=== PATIENT | male | born 1930 | race Caucasian/White ===

== ENCOUNTER 2017-04-17 20:18 | Inpatient (IN) ==
[2017-04-17] MEDS ORDERED: SODIUM CHLORIDE 0.9% 2,000 ML IV STA (20:40)
[2017-04-17 21:54] LABS: Basophils % 0.1 % (0.0-0.8); Eosinophils % 0.1 % (0.00-10.9); Hematocrit 49.6 VOL% (42.0-52.0); Hemoglobin 16.7 GM/DL (14.0-18.0); Immature Granulocytes % 0.5 %; Immature Granulocytes Absolute 0.09 #; Lymphocytes # 1.3 10*3/uL (1.4-4.0); Lymphocytes % 7.3 % (21.2-54.2); Mean Corpuscular HGB Conc 33.7 GM/DL (32-36); Mean Corpuscular Hemoglobin 31 PG (27-34); Mean Corpuscular Volume 93.2 FL (87-102); Mean Platelet Volume 9.6 FL (9.6-12.0); Monocytes # 1.6 10*3/uL (0.11-0.8); Neutrophils # 14.8 10*3/uL (1.4-7.4); Platelet Count 237 T/CUMM (130-400); Red Blood Count 5.32 MC/CUMM (3.8-5.5); Red Cell Distribution Width 14.3 % (9.3-17.3); White Blood Count 17.9 T/CUMM (4-12)
[2017-04-17 22:05] LABS: Apearance,Urine Slightly Hazy (Clear); Bilirubin,Urine Negative (Negative); Blood, Urine Large mg/dL (Negative); Glucose,Urine (UA) Negative (Negative); Hyaline Casts,Urine 15 /LPF (0-3); Ketones,Urine 20 mg/dL (Negative); Mucus,Urine Moderate /LPF (Occasional); Nitrite,Urine Negative (Negative); Protein,Urine 100 MG/DL; RBC,Urine 15 /HPF (0-4); Squamous Epithelial Cell,Urine Occasional /HPF (0-10); Urine Color Yellow (Yellow); Urine Specific Gravity 1.013 (1.001-1.035); Urine Urobilinogen < 2.0 EU/DL (0.2-1.0); WBC,Urine 7 /HPF (0-6)
[2017-04-17 22:10] LABS: Calcium 9.7 MG/DL (8.5-10.1); Magnesium 2.4 MG/DL (1.8-2.4); Osmolality,Calculated 312.1 MOS/KG (273-304); Potassium 4.2 MMOL/L (3.5-5.1)
[2017-04-17 22:15] LABS: Lactic Acid 2.7 MMOL/L (0.4-2.0)
[2017-04-17] MEDS ORDERED: cefTRIAXone 1,000 MG in SODIUM CHLORIDE 0.9% 100 ML IV STA (22:23)
--- NOTE | 2017-04-17 22:36 | Emergency Department Note ---
ICliff Emily, am scribing for, and in the presence of, He Cr MD 20:59. Tayo Forman Hans, MD, personally performed the services described in this documentation, ascribed by Marylin Coronado in my presence, and it is both accurate and complete . Arrival - Arrival Chief Complaint: Fall ED Nursing Triage Note: Pt arrives via ems from home after being found in floor by neighbors. PT states that he lost his balance and fell into the floor on Monday was not able to get up. Complains of pain to back of head where he states he bumped his head on wall Monday. Denies any loc with fall and no other complaints of pain at time of triage. Mode of Arrival: Stretcher Limitations: No Limitations Source: Patient Time Seen by Provider: 04/17/17 20:31 - History of Present Illness HPI Narrative: Pt is a 86 y/o male who came to ED by EMS with c/o mechanical fall on Monday and was found by neighbor today. Pt notes pouring Miralax and foot slipped and slid down wall, hitting head of posterior region, but denies LOC. Pt has ecchymosis to hips in ED but denies pain. Pt takes aspirin, blood thinner. Neighbor found pt on floor, laying flat on back due to pt unable to get up own his on. Neighbor reports son that lives in [place], [place], is on his way to ED. She state pt is in nml baseline in ED. She gave him a coke and nabs ( peanut butter crackers) when she found him. PMHx of two heart caths in 2011. Onset (ago): day(s) Consistency: constant Severity: moderate Severity scale (1-10): 6 Allergies/Adverse Reactions: Allergies Allergy/AdvReac Type Severity Reaction Status Date / Time No Known Allergies Allergy Verified 04/17/17 20:29 Review of System - Review of System 12 point system: reviewed and no additional remarkable complaints except as stated - Review of System Constitutional: Absent: chills, fever Head/Ears/Nose/Throat: Present: other (posterior scalp pain) Respiratory: Absent: respiratory distress Cardiovascular: Absent: chest pain Gastrointestinal: Absent: abdominal pain Musculoskeletal: Absent: arm pain, back pain, lower back pain, leg pain, neck pain Skin: Absent: rash Neurological: Absent: headache Medical,Surgical,& Family Hx - Medical History Cardio: History of: Hypertension - Family History Family History: noncontributory - Social History Smoking Status: Never smoker Frequency of Alcohol Use: None Type of Drug Use: None Marital Status: Single Lives With:: Alone Functional capacity: independent ambulation Exam Vital Signs: Vital Signs Temperature 98.4 F 04/17/17 20:18 Pulse Rate 74 04/17/17 20:18 Respiratory Rate 20 04/17/17 20:18 Blood Pressure 123/97 04/17/17 20:18 O2 Sat by Pulse Oximetry 96 04/17/17 20:18 - General General appearance: alert, in no apparent distress - Head Head exam: Present: atraumatic, normocephalic, other (tenderness of posterior scalp, no hematoma found) - Eye Eye exam: Present: PERRL, EOMI - ENT ENT exam: Present: mucous membranes moist. Absent: mucous membranes dry - Neck Neck exam: Present: full ROM - Chest Chest inspection: Present: symmetric chest wall rise - Respiratory Respiratory exam: Present: normal lung sounds bilaterally. Absent: respiratory distress - Cardiovascular Cardiovascular exam: Present: regular rate, normal rhythm, normal heart sounds - Abdominal Exam Abdominal exam: Present: soft, normal bowel sounds. Absent: tenderness - Extremities Exam Extremities exam: Present: full ROM. Absent: tenderness, pedal edema - Neurological Exam Neurological exam: Present: alert, oriented X3, CN II-XII intact, other (gross neuro intact; posterior tibial pulses +2) - Psychiatric Psychiatric exam: Present: normal affect, normal mood - Skin Skin exam: Present: warm, dry. Absent: intact (ecchymosis noted to bilateral shoulders, knees, hips and feet) Course Course Narrative: This patient was evaluated in the ER with CT head and cervical spine as well as chest x-ray and pelvis x-ray. No acute pathology was seen. The patient was volume depleted on his lab work and received 2 L of fluid in the ER. I discussed his presentation with the hospitalist service on-call who agreed to see him for admission for hydration. His CPK was still pending at the time of the consultation but there was no compartment syndrome exam and his urine did not look like myoglobinuria or rhabdomyolysis. Results - Labs CBC & BMP: 04/17/17 21:45 04/17/17 21:45 Lab Results: I have reviewed the patients labs Labs: Laboratory Tests 04/17/17 04/17/17 04/17/17 21:45 21:45 21:45 WBC 17.9 H RBC 5.32 Hgb 16.7 Hct 49.6 Plt Count 237 Neut % (Auto) 83.0 H Lymph % (Auto) 7.3 L Neut # (Auto) 14.8 H Lymph # (Auto) 1.3 L Wells # (Auto) 1.6 H Sodium 149 H Potassium 4.2 Chloride 111 H Carbon Dioxide 24 Anion Gap 18.2 H BUN 52 H Creatinine 1.70 H GFR Calculation 39 BUN/Creatinine Ratio 30.00 H Glucose 150 H Calculated Osmolality 312.1 H Lactic Acid 2.7 H Calcium 9.7 Magnesium 2.4 Urine Color Yellow Urine Appearance Slightly hazy Urine pH 5.0 Ur Specific [place] 1.013 Urine Protein 100 Urine Glucose (UA) Negative Urine Ketones 20 Urine Blood Large Urine Nitrate Negative Urine Urobilinogen < 2.0 H Urine RBC 15 Urine WBC 7 Ur Squamous Epith Cells Occasional Hyaline Casts 15 Urine Mucus Moderate Disposition Clinical Impression: Fall Case discussed with: patient, patient's family Disposition: Still a Patient Condition: Stable Time of Disposition: 22:36
[2017-04-17] MEDS ORDERED: DEXTROSE 5% NACL 0.45% 1,000 ML IV SCH (23:30)
[2017-04-17] MEDS ORDERED: cefTRIAXone 1,000 MG VIAL ONE (23:32)
[2017-04-18] MEDS: LACTATED RINGERS 1,000 ML IV SCH ×2 (01:30→06:06)
[2017-04-18 04:41] LABS: Basophils % 0.1 % (0.0-0.8); Hematocrit 42.1 VOL% (42.0-52.0); Hemoglobin 13.9 GM/DL (14.0-18.0); Immature Granulocytes % 0.6 %; Immature Granulocytes Absolute 0.09 #; Lymphocytes % 6.9 % (21.2-54.2); Mean Corpuscular Hemoglobin 31 PG (27-34); Mean Corpuscular Volume 94.4 FL (87-102); Mean Platelet Volume 9.8 FL (9.6-12.0); Monocytes # 1.8 10*3/uL (0.11-0.8); Monocytes % 11.5 % (1.7-12.7); Neutrophils # 12.3 10*3/uL (1.4-7.4); Neutrophils % 80.9 % (38.7-73.9); Platelet Count 196 T/CUMM (130-400); Red Blood Count 4.46 MC/CUMM (3.8-5.5); Red Cell Distribution Width 14.4 % (9.3-17.3); White Blood Count 15.2 T/CUMM (4-12)
[2017-04-18 05:02] LABS: Calcium 8.4 MG/DL (8.5-10.1); Potassium 4.4 MMOL/L (3.5-5.1)
--- NOTE | 2017-04-18 06:07 | CT Report ---
History: Fall with loss of consciousness Date: 04/17/2017 Study: CT head without contrast Comparison exam: July 29, [address] The study was also reviewed by [facility]. Transaxial CT sections were obtained through the brain without contrast. The ventricles are midline in position without evidence of hydrocephalus. There is no mass or area of parenchymal hemorrhage. There is no gross CT evidence of acute cortical stroke. There is mild to moderate diffuse cerebral atrophy. There is a small amount of ill-defined low density in the periventricular white matter without mass effect compatible with changes of small vessel disease. There is no extra-axial hematoma. The sinuses are generally clear. There is no obvious skull fracture. Impression: No acute intracranial process. No adverse interval change from the previous study This CT exam was performed using one or more the following dose reduction techniques: Automated exposure control, adjustment of the MA and/or KV according to patient size, or use of iterative reconstruction technique. PROCEDURE INTERPRETED AT [facility] DEPARTMENT OF RADIOLOGY Final Report Signed by: Dr. Kathe Patel
--- NOTE | 2017-04-18 06:13 | CT Report ---
History: Neck pain after fall Date: 04/17/2017 Study: CT cervical spine without contrast Comparison exam: No previous cervical spine CT available The study was also reviewed by [facility]. Thin spiral CT sections were obtained through the cervical spine without IV contrast. Multiplanar reconstruction images are also evaluated. There is no fracture, subluxation, or prevertebral soft tissue swelling. There is prominent degenerative disc narrowing at C6-C7 with mild disc narrowing at C5-C6. There is moderate anterior spondylosis at these levels. There is mild narrowing of the spinal canal at C2-C3 related to minimal posterior diffuse disc bulging; there is moderate bony neural foraminal narrowing on the left this level related to facet hypertrophy. There is moderate spinal stenosis at C3-C4 related to moderate posterior diffuse disc bulging as well as moderate ligamentum flavum hypertrophy; there is severe left and moderate right neural foraminal narrowing related to uncovertebral and facet hypertrophy. There is mild spinal stenosis at C4-C5 related to mild posterior diffuse disc bulging and mild ligament flavum hypertrophy; there is moderate to severe bilateral neural foraminal narrowing related to uncovertebral and facet hypertrophy. There is mild spinal stenosis at C5-C6 related to mild posterior bulging disc and osteophyte; there is moderate to severe right greater than left neural foraminal narrowing related to uncovertebral hypertrophy. There is moderate spinal stenosis at C6-C7 related to posterior bulging disc and vertebral body osteophyte, lateralized to the left; there is severe neural foraminal narrowing bilaterally related to uncovertebral hypertrophy. This CT exam was performed using one or more the following dose reduction techniques: Automated exposure control, adjustment of the MA and/or KV according to patient size, or use of iterative reconstruction technique. Impression: No acute fracture. Multilevel spinal stenosis related to bulging disc and vertebral body osteophyte as detailed above PROCEDURE INTERPRETED AT [facility] DEPARTMENT OF RADIOLOGY Final Report Signed by: Dr. Kathe Patel
[2017-04-18] MEDS: SODIUM CHLORIDE 0.45% 1,000 ML IV SCH ×4 (06:45→23:40)
--- NOTE | 2017-04-18 07:16 | XRay Report ---
History: Fall with pelvic trauma Date: 04/18/2017 Study: AP pelvis Comparison exam: No previous similar There is no fracture, dislocation, or focal destructive osseous abnormality. There is osteopenia. There is mild osteophyte formation of the hips, though the joint spaces are well-maintained. There is lower lumbar spondylosis. Impression: No fracture. Degenerative changes of the hips and lower lumbar spine. Osteopenia PROCEDURE INTERPRETED AT [facility] DEPARTMENT OF RADIOLOGY Final Report Signed by: Dr. Kathe Patel
--- NOTE | 2017-04-18 07:52 | XRay Report ---
History: Chest trauma related to fall Date: 04/17/2017 Study: Chest x-ray AP portable Comparison exam: March 27, 2012 The cardiac silhouette is not enlarged. There is no mediastinal mass. The pulmonary vasculature is not engorged. There is no gross pleural effusion. The lungs are well-expanded and clear. There is calcified granuloma in the lateral left mid to lower lung. There is mild thoracic spondylosis Impression: No acute cardiopulmonary process. No significant interval change PROCEDURE INTERPRETED AT [facility] DEPARTMENT OF RADIOLOGY Final Report Signed by: Dr. Kathe Patel
--- NOTE | 2017-04-18 08:20 | Internal Med History&Physical ---
Assessment and Plan (1) Fall Status: Acute Assessment and plan: 86-year-old male admitted to intensive care unit * Status post fall. Patient was apparently on the floor for 2 days. His CPK was elevated. Patient did have renal insufficiency consistent with dehydration. He was given 2 L IV fluids in the ER and is getting fluids at 200 cc an hour. Will follow his CPK and will check aldolase on the patient * Dehydration. Continue IV fluids as mentioned above * Elevated white count. No evidence of any infection. * Coronary artery disease. Stable * Hypertension. Will hold lisinopril but will restart metoprolol * Hyperlipidemia. Will hold statin * Will consult PT and OT. * Discussed with patient. No family is present Current Visit: Yes (2) Hypertension Status: Acute Current Visit: Yes (3) Diet-controlled diabetes mellitus Status: Acute Current Visit: Yes (4) Coronary artery disease Status: Acute Current Visit: Yes (5) Hearing impairment Status: Acute Current Visit: Yes (6) Hyperlipidemia Status: Acute Current Visit: Yes History of Present Illness Chief complaint: Fall History of present illness: Mr. Little is a 86 year old male with history of multiple medical problems including hypertension, diet-controlled diabetes, hypercholesterolemia, gastroesophageal reflux disease, glaucoma, hearing impairment who was admitted through the emergency room. Patient was found on the floor by his neighbors. Patient lost his balance and fell into the floor on Monday and was not able to get up. She denied any loss of consciousness. Patient was unable to get up on his own. His son lives in [place] and when they did not hear from him they called the neighbors. He denies any chest pain or shortness of breath. He is aching all over. He denies any fever or chills. He does not remember how he fell. Patient was evaluated in the emergency room with CT scan of her head, cervical spine, chest x-ray and pelvis x-ray. He did not had any acute changes on the CT scans. His chest x-ray was okay. Patient was reportedly back to his baseline in the emergency room. He recognizes me this morning. He denies any specific complaints and states that he is hungry. Patient does not smoke or drink alcohol Home Medications Medication Instructions Recorded Confirmed Type Acetaminophen Tab [Tylenol Tab] 650 mg PO DAILY 04/18/17 04/18/17 History Aspirin [Ecotrin] 81 mg PO DAILY 04/18/17 04/18/17 History Atorvastatin [Lipitor] 10 mg PO DAILY 04/18/17 04/18/17 History Brimonidine/Timolol Oph Soln 1 drop BOTH EYES BID 04/18/17 04/18/17 History [Combigan] Clopidogrel [Plavix] 75 mg PO DAILY 04/18/17 04/18/17 History Finasteride 5 mg PO DAILY 04/18/17 04/18/17 History Gabapentin Cap/Tab [Neurontin 400 mg PO BID 04/18/17 04/18/17 History Cap/Tab] Lisinopril 5 mg PO DAILY 04/18/17 04/18/17 History Metoprolol Tartrate 25 mg PO BID 04/18/17 04/18/17 History Omeprazole 20 mg PO DAILY 04/18/17 04/18/17 History Travoprost 0.004% Oph Soln 1 drop BOTH EYES BEDTIME 04/18/17 04/18/17 History [Travatan Z] Allergies Allergy/AdvReac Type Severity Reaction Status Date / Time No Known Allergies Allergy Verified 04/17/17 20:29 Medical,Surgical,& Family Hx - Medical History Cardio: History of: CAD (Stent placement in 2011), Hypertension HEENT: History of: Ear Problem (wears bilateral hearing aids), 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) Endocrine: History of: Diabetes Mellitus (NIDDM) (diagnosed [place] 20 years ago), Dyslipidemia Renal: History of: Renal Problems (Chronic renal insufficiency) Genitourinary: History of: Prostate Problems (BPH) Gastrointestinal: History of: GERD Musculoskeletal: History of: Musculoskeletal Problems (difficulties walking) No history of: Amputation - Surgical History Cardiac Surgeries: Sugical HX of: Cardiac Catheterization (x2, with stents 2011) Thoracic Surgeries: Patient denies;: Organ Transplant, Lobectomy Neurologic Surgeries: Patient denies: Neurologic Surgery HEENT Surgeries: Surgical HX of: Eye Surgery (bilateral cataracts 2001) Abdominal Surgeries: Patient denies: Abdominal Surgery Reproductive Surgeries: Surgical HX of;: Genitourinary Surgery Orthopedic Surgeries: Patient denies;: Implanted Devices, Orthopedic Surgery, Spinal Surgery, Total Hip Replacement, Total Knee Replacement - Family History Family History: Reports;: Family Cancer, Family Heart Disease - Social History Smoking Status: Never smoker Frequency of Alcohol Use: None Type of Drug Use: None Marital Status: Single Lives With:: Alone Functional capacity: independent ambulation 12 point system: reviewed and no additional remarkable complaints except as stated (As mentioned in HPI) Exam - Constitutional Vitals: Period Temp Pulse Resp BP Sys/Beckford Pulse Ox Last 24 Hr 98.4 F-99.5 F 74-117 14-20 123-175/67-97 90-100 Exam: Examination: GENERAL: NAD. HEENT: PERRLA. EOMI. Mucous membranes are moist. Abrasion on the scalp but no hematoma NECK: Neck is supple. No JVD. No carotid bruit. No thyromegaly. CVS: Regular rate and rhythm. S1 and S2 are normal. RESPIRATORY: Lungs are clear. No rales or rhonchi. ABDOMEN: Soft and nontender. Bowel sounds are present. No hepatosplenomegaly. EXT: No edema. Peripheral pulses are present. RESORT KEEPER: Patient is awake, alert and oriented to time place and person. Cranial nerves II through XII are grossly intact. Motor strength is 3-4 over 5 both upper and lower extremities. Sensory is intact. Deep tendon reflexes are present. SKIN: Warm and dry. Multiple abrasions are present on the skin both feet. Ecchymosis on both shoulders knees hips and feet. MSK: No obvious deformity. Results - Labs CBC & BMP: 04/18/17 03:31 04/18/17 03:31 Lab Results: I have reviewed the past 24 hour labs
[2017-04-18] MEDS: GABAPENTIN 400 MG CAPSULE PO SCH ×2 (11:28→21:20)
[2017-04-18] MEDS: METOPROLOL TARTRATE 25 MG TABLET PO SCH ×2 (11:28→21:20)
[2017-04-18] MEDS: FINASTERIDE 5 MG TABLET PO SCH (11:29)
[2017-04-18] MEDS: CLOPIDOGREL 75 MG TABLET PO SCH (11:29)
[2017-04-18] MEDS: BRIMONIDINE/TIMOLOL OPH SOLN 5 ML BOTTLE BOTH EYES SCH ×2 (11:30→21:20)
[2017-04-18] MEDS: TRAVOPROST 0.004% OPH SOLN 2.5 ML BOTTLE BOTH EYES SCH (21:20)
[2017-04-19 06:16] LABS: Albumin 2.2 G/DL (3.4-5.0); Bilirubin,Total 1.3 MG/DL (0.2-1.0); Calcium 7.8 MG/DL (8.5-10.1); Osmolality,Calculated 292.8 MOS/KG (273-304); Potassium 3.6 MMOL/L (3.5-5.1); Total Protein 4.4 G/DL (6.4-8.3)
--- NOTE | 2017-04-19 06:54 | Physician Query Form ---
CLICK EDIT DOCUMENT TO SELECT QUERY ANSWER --> OK --> SIGN Sharri Anderson RN, CCDS Certified Clinical Dental Service Technician W) [phone] (f) [phone] [email or web address] PROVIDERS: Make your selection(s) from the choices in EACH section by typing an "x" and enter comments in the comment section. Please use your independent medical judgment in providing your response. This request does not imply that any particular answer is desired or expected. CLINICAL INDICATORS: (Providers should not edit this section) The medical record indicates that the patient was admitted for hydration, Sodium of 149 on the that increased to 150 on the and the patient was placed on 1/2 NS on the . Based on the above, could you clarify the appropriate diagnosis, if significant , that supports the above abnormalities and additional evaluation, monitoring, and/or treatment rendered: ( ) Patient was treated or monitored for hypernatremia ( ) Patient was not treated or monitored for hypernatremia ( x) Other, please specify: Patient was extremely dehydrated ( ) Clinically unable to determine COMMENTS: PLEASE ALSO DOCUMENT RESPONSE IN PROGRESS NOTES AND/OR DISCHARGE SUMMARY Use of terms such as suspected, likely, or probable (associated with a specific diagnosis that is being evaluated, monitored, or treated as if it exists) are acceptable and can be restated in the discharge summary if not ruled out. MTDD
--- NOTE | 2017-04-19 06:55 | Physician Query Form ---
CLICK EDIT DOCUMENT TO SELECT QUERY ANSWER --> OK --> SIGN Sharri Anderson RN, CCDS Certified Clinical Artistic Director W) [phone] (f) [phone] [email or web address] PROVIDERS: Make your selection(s) from the choices in EACH section by typing an "x" and enter comments in the comment section. Please use your independent medical judgment in providing your response. This request does not imply that any particular answer is desired or expected. CLINICAL INDICATORS: (Providers should not edit this section) The medical record indicates that the patient was admitted for hydration, creatinine of 1.70# on the that has decreased to 1.00# on the , GFR of 39 on the that has increased to 82 on the and the patient was bolused with 2,000 cc in the ER. Clarify which of the following most accurately represents the patient's renal status: ( ) Acute kidney injury (non-traumatic) ( ) Acute renal failure ( ) Acute renal failure with underlying Chronic Kidney Disease (CKD) - please provide stage below ( ) Acute renal failure with pathological renal lesion ( ) Acute renal failure with necrosis ( ) tubular ( ) medullary ( ) cortical ( ) CKD - please provide stage below ( ) End Stage Renal Disease ( ) Acute interstitial nephritis ( ) Hepatorenal syndrome (x ) Other, please specify: Patient was extremely dehydrated and had acute kidney injury secondary to dehydration ( ) Clinically unable to determine Chronic Kidney Disease Stages Source: National Kidney Disease Foundation ( ) Stage I (eGFR > or = 90) ( x) Stage II (eGFR 60 - 89) ( ) Stage III (eGFR 30 - 59) ( ) Stage IV (eGFR 15 - 29) ( ) Stage V (eGFR < 15 or dialysis) COMMENTS: PLEASE ALSO DOCUMENT RESPONSE IN PROGRESS NOTES AND/OR DISCHARGE SUMMARY Use of terms such as suspected, likely, or probable (associated with a specific diagnosis that is being evaluated, monitored, or treated as if it exists) are acceptable and can be restated in the discharge summary if not ruled out. MTDD
[2017-04-19] MEDS: SODIUM CHLORIDE 0.45% 1,000 ML IV SCH ×2 (07:04→16:21)
[2017-04-19] MEDS: FINASTERIDE 5 MG TABLET PO SCH (08:42)
[2017-04-19] MEDS: GABAPENTIN 400 MG CAPSULE PO SCH ×2 (08:42→21:52)
[2017-04-19] MEDS: METOPROLOL TARTRATE 25 MG TABLET PO SCH ×2 (08:42→21:52)
[2017-04-19] MEDS: CLOPIDOGREL 75 MG TABLET PO SCH (08:42)
[2017-04-19] MEDS: BRIMONIDINE/TIMOLOL OPH SOLN 5 ML BOTTLE BOTH EYES SCH ×2 (08:45→21:53)
--- NOTE | 2017-04-19 09:08 | Internal Med Progress Note ---
Assessment and Plan (1) Fall Status: Acute Assessment and plan: 86-year-old male admitted to intensive care unit * Status post fall. He is much better. He still quite weak. His CPK is coming down. His renal function is normal * Dehydration. Decrease IV fluids. * Elevated white count. No evidence of any infection. * Coronary artery disease. Stable * Hypertension. Blood pressure is stable * Hyperlipidemia. Will hold statin * Will consult PT and OT. * Discussed with patient. Will move him to floor. He will benefit from swing bed placement. Current Visit: Yes (2) Hypertension Status: Acute Current Visit: Yes (3) Diet-controlled diabetes mellitus Status: Acute Current Visit: Yes (4) Coronary artery disease Status: Acute Current Visit: Yes (5) Hearing impairment Status: Acute Current Visit: Yes (6) Hyperlipidemia Status: Acute Current Visit: Yes Internal Medicine - PN: Subj Interval history: Patient is feeling much better today. He is sitting up in the bed eating his breakfast. He still feels quite weak. He denies any chest pain or shortness of breath. He denies any nausea or vomiting. Exam (Progress Note) - Constitutional Vitals: Period Temp Pulse Resp BP Sys/Beckford Pulse Ox Last 24 Hr 98.0 F-99.6 F 66-96 12-24 84-147/38-86 92-100 Exam: Examination: GENERAL: NAD. HEENT: PERRLA. EOMI. NECK: Neck is supple. CVS: Regular rate and rhythm. S1 and S2 are normal. RESPIRATORY: Lungs are clear. No rales or rhonchi. ABDOMEN: Soft and nontender. EXT: No edema. Peripheral pulses are present. EDUCATIONAL TECHNOLOGY COORDINATOR: Patient is awake, alert and oriented to time place and person. Motor strength is 3-4 over 5 both upper and lower extremities. SKIN: Warm and dry. Multiple abrasions are present on the skin both feet. Ecchymosis on both shoulders knees hips and feet. MSK: No obvious deformity. Results - Labs CBC & BMP: 04/18/17 03:31 04/19/17 04:18 Lab Results: I have reviewed the past 24 hour labs
[2017-04-19] MEDS: TRAVOPROST 0.004% OPH SOLN 2.5 ML BOTTLE BOTH EYES SCH (21:53)
[2017-04-20 05:22] LABS: Basophils % 0.2 % (0.0-0.8); Eosinophils # 0.2 10*3/uL (0.0-0.87); Eosinophils % 2.1 % (0.00-10.9); Hematocrit 35.2 VOL% (42.0-52.0); Hemoglobin 12.2 GM/DL (14.0-18.0); Immature Granulocytes % 0.9 %; Immature Granulocytes Absolute 0.07 #; Lymphocytes # 1.9 10*3/uL (1.4-4.0); Lymphocytes % 23.3 % (21.2-54.2); Mean Corpuscular HGB Conc 34.7 GM/DL (32-36); Mean Corpuscular Hemoglobin 32 PG (27-34); Mean Corpuscular Volume 92.1 FL (87-102); Mean Platelet Volume 10.2 FL (9.6-12.0); Monocytes % 12.9 % (1.7-12.7); Neutrophils # 4.9 10*3/uL (1.4-7.4); Neutrophils % 60.6 % (38.7-73.9); Platelet Count 142 T/CUMM (130-400); Red Blood Count 3.82 MC/CUMM (3.8-5.5); Red Cell Distribution Width 13.8 % (9.3-17.3); White Blood Count 8.1 T/CUMM (4-12)
[2017-04-20 05:52] LABS: Calcium 7.8 MG/DL (8.5-10.1); Osmolality,Calculated 287.1 MOS/KG (273-304); Potassium 3.7 MMOL/L (3.5-5.1)
[2017-04-20] MEDS: SODIUM CHLORIDE 0.45% 1,000 ML IV SCH (07:20)
--- NOTE | 2017-04-20 09:15 | Discharge Summary ---
Hospital Course - Hospital Course Hospital Course: Patient is a 86-year-old male with history of hypertension, diet-controlled diabetes, hypercholesterolemia, gastroesophageal reflux disease, coronary artery disease who was admitted through the emergency room after he was found on floor by his neighbors. He was found to be quite dehydrated and had multiple bruises all over the body. Patient was started on IV fluids. He has gradually improved over last 3 days. His renal function is almost back to normal. He is still quite debilitated and has difficulty getting up and walking. He will be transferred to swing bed unit to get more strength back. He lives alone at home. Diagnosis - Discharge Diagnosis (1) Fall Status: Acute (2) Hypertension Status: Acute (3) Diet-controlled diabetes mellitus Status: Acute (4) Coronary artery disease Status: Acute (5) Hearing impairment Status: Acute (6) Hyperlipidemia Status: Acute Discharge Plan - Discharge Data Disposition: Disch/Xfer to [facility] Condition at Discharge: Stable Discharge Diet: advance to your usual diet Activity: as per physical therapy - Discharge Medications Continue Omeprazole 20 mg PO DAILY Metoprolol Tartrate 25 mg PO BID Brimonidine/Timolol Oph Soln [Combigan] 1 drop BOTH EYES BID Clopidogrel [Plavix] 75 mg PO DAILY Atorvastatin [Lipitor] 10 mg PO DAILY Finasteride 5 mg PO DAILY Travoprost 0.004% Oph Soln [Travatan Z] 1 drop BOTH EYES BEDTIME Gabapentin Cap/Tab [Neurontin Cap/Tab] 400 mg PO BID Aspirin [Ecotrin] 81 mg PO DAILY Lisinopril 5 mg PO DAILY Acetaminophen Tab [Tylenol Tab] 650 mg PO DAILY - Follow Up or Referral - Forms/Instructions Exam - Constitutional Vitals: Period Temp Pulse Resp BP Sys/Beckford Pulse Ox Last 24 Hr 97.8 F-99.2 F 69-77 18-18 128-148/70-75 95-96 Exam: Examination: GENERAL: NAD. NECK: Neck is supple. CVS: Regular rate and rhythm. S1 and S2 are normal. RESPIRATORY: Lungs are clear. No rales or rhonchi. ABDOMEN: Soft and nontender. EXT: No edema. Peripheral pulses are present. SERVICE DELIVERY MANAGEMENT CONSULTANT: Motor strength is 3-4 over 5 both upper and lower extremities. SKIN: Warm and dry. Multiple abrasions are present on the skin both feet. Ecchymosis on both shoulders knees hips and feet. MSK: No obvious deformity. Discharge Results Procedures and tests throughout hospitalization: Pending Orders 04/17/17 Urine Culture Routine 04/18/17 05:00 Aldolase Routine Myoglobin, Serum Routine Labs on day of discharge: Labs from last 24 hours 04/20/17 04/20/17 04:05 04:05 WBC 8.1 D RBC 3.82 Hgb 12.2 L Hct 35.2 L MCV 92.1 MCH 32 MCHC 34.7 RDW 13.8 Plt Count 142 D MPV 10.2 Neut % (Auto) 60.6 Lymph % (Auto) 23.3 Woodson % (Auto) 12.9 H Eos % (Auto) 2.1 Baso % (Auto) 0.2 Neut # (Auto) 4.9 Lymph # (Auto) 1.9 Woodson # (Auto) 1.0 H Eos # (Auto) 0.2 Baso # (Auto) 0.0 Immature Gran % 0.9 Nucleated RBC % 0.0 Immature Gran # 0.07 Nucleated RBCs # 0.00 Immature Plt Fraction 0.0 Sodium 142 Potassium 3.7 Chloride 111 H Carbon Dioxide 24 Anion Gap 10.7 BUN 24 H Creatinine 1.00 GFR Calculation 82 BUN/Creatinine Ratio 24.00 H Glucose 114 H Calculated Osmolality 287.1 Calcium 7.8 L Total Creatine Kinase 967 H D Preliminary micro results at discharge 04/17/17 Unknown Urine Culture - Preliminary Urine,Catheterized Gram Positive Cocci DS: Provider Date of admission: 04/17/17 22:51 Primary care physician: Amol Knutson MD Attending physician on admission: Haider Anguiano MD Consults: 04/18/17 08:14 Consult to Occupational Therapy [CONS] Routine Reason for Occupational Therapy: Evaluate and Treat Consult to Physical Therapy [CONS] Routine Reason for Physical Therapy: Evaluate and Treat 04/19/17 09:09 Consult to Occupational Therapy [CONS] Routine Reason for Occupational Therapy: Evaluate and Treat 04/19/17 09:13 Consult to Case Mgmt/Social Srvs [CONS] Routine Reason for Case Mgmt/Social Srvs: Discharge Planning Consult Comment: Consult [facility] Discharging clinician: Haider Anguiano MD
[2017-04-20 11:05] VITALS: BP 148/88
[2017-04-20] MEDS: CLOPIDOGREL 75 MG TABLET PO SCH (11:07)
[2017-04-20] MEDS: METOPROLOL TARTRATE 25 MG TABLET PO SCH (11:08)
[2017-04-20] MEDS: GABAPENTIN 400 MG CAPSULE PO SCH (11:09)
[2017-04-20] MEDS: FINASTERIDE 5 MG TABLET PO SCH (11:09)
[2017-04-20] MEDS: BRIMONIDINE/TIMOLOL OPH SOLN 5 ML BOTTLE BOTH EYES SCH (11:10)
[2017-04-20 11:51] LABS: Aldolase 51.2 U/L (<7.7)
== END 2017-04-20 13:56 | DRG 684 ==
LOC: EDUNIT# → EDBD → N.ED 20:18 → N.EDINP 22:51 → SUATTDRO 22:51 → N.2E 23:12 → N.ICU 04-18 00:04 → N.3E 04-19 11:48
PROVIDERS: ADMIT Internal Medicine; ATTEND Internal Medicine

== ENCOUNTER 2017-07-10 10:20 | Inpatient (IN) ==
[2017-07-10] MEDS ORDERED: CLINDAMYCIN INJ 600 MG in PREMIX 1 EACH IV STA (11:26)
[2017-07-10 11:38] LABS: Basophils % 0.3 % (0.0-0.8); Eosinophils # 0.1 10*3/uL (0.0-0.87); Eosinophils % 0.7 % (0.00-10.9); Hematocrit 39.6 VOL% (42.0-52.0); Immature Granulocytes % 0.3 %; Immature Granulocytes Absolute 0.04 #; Lymphocytes # 1.6 10*3/uL (1.4-4.0); Lymphocytes % 13.5 % (21.2-54.2); Mean Corpuscular HGB Conc 32.8 GM/DL (32-36); Mean Corpuscular Hemoglobin 30 PG (27-34); Mean Corpuscular Volume 91.9 FL (87-102); Mean Platelet Volume 9.6 FL (9.6-12.0); Monocytes # 1.5 10*3/uL (0.11-0.8); Monocytes % 12.7 % (1.7-12.7); Neutrophils # 8.3 10*3/uL (1.4-7.4); Neutrophils % 72.5 % (38.7-73.9); Platelet Count 175 T/CUMM (130-400); Red Blood Count 4.31 MC/CUMM (3.8-5.5); White Blood Count 11.5 T/CUMM (4-12)
[2017-07-10] MEDS ORDERED: CLINDAMYCIN INJ 0 ML IV ONE (11:40)
[2017-07-10] MEDS ORDERED: CLINDAMYCIN INJ 50 ML IV ONE (11:41)
[2017-07-10 11:47] LABS: Bilirubin,Total 0.8 MG/DL (0.2-1.0); Calcium 8.8 MG/DL (8.5-10.1); Osmolality,Calculated 283.5 MOS/KG (273-304); Potassium 3.9 MMOL/L (3.5-5.1); Total Protein 6.7 G/DL (6.4-8.3)
[2017-07-10] MEDS ORDERED: APIXABAN 5 MG TABLET PO STA (14:03)
[2017-07-10] MEDS ORDERED: APIXABAN 5 MG TABLET ONE (14:08)
[2017-07-10] MEDS ORDERED: ACETAMINOPHEN 325 MG TABLET PO PRN (15:32)
[2017-07-10] MEDS ORDERED: ONDANSETRON 4 MG/2 ML VIAL IV PRN (15:32)
[2017-07-10] MEDS: DEXTROSE 5% NACL 0.45% 1,000 ML IV SCH (16:29)
[2017-07-10] MEDS: CLINDAMYCIN INJ 600 MG in PREMIX 1 EACH IV SCH (18:09)
[2017-07-10] MEDS: APIXABAN 5 MG TABLET PO SCH (20:50)
[2017-07-10] MEDS: GABAPENTIN 400 MG CAPSULE PO SCH (20:50)
[2017-07-10] MEDS: METOPROLOL TARTRATE 25 MG TABLET PO SCH (20:50)
[2017-07-10] MEDS: DOCUSATE SODIUM 100 MG CAPSULE PO SCH (20:51)
[2017-07-10] MEDS: BRIMONIDINE/TIMOLOL OPH SOLN 5 ML BOTTLE BOTH EYES SCH (20:51)
[2017-07-10] MEDS: DORZOLAMIDE 2% OPH SOLN 10 ML BOTTLE BOTH EYES SCH (22:52)
[2017-07-10] MEDS: LATANOPROST 0.005% OPH SOLN 2.5 ML BOTTLE BOTH EYES SCH (22:53)
[2017-07-11] MEDS: CLINDAMYCIN INJ 600 MG in PREMIX 1 EACH IV SCH ×5 (00:05→23:25)
[2017-07-11] MEDS: DEXTROSE 5% NACL 0.45% 1,000 ML IV SCH ×3 (00:30→21:04)
[2017-07-11 06:54] LABS: Folate 9.5 NG/ML (5.4-24.0)
[2017-07-11] MEDS: ATORVASTATIN 10 MG TABLET PO SCH (09:55)
[2017-07-11] MEDS: METOPROLOL TARTRATE 25 MG TABLET PO SCH ×2 (09:55→21:03)
[2017-07-11] MEDS: POLYETHYLENE GLYCOL POWDER 17 GM PACK PO SCH (09:55)
[2017-07-11] MEDS: PANTOPRAZOLE 40 MG TABLET PO SCH (09:55)
[2017-07-11] MEDS: DOCUSATE SODIUM 100 MG CAPSULE PO SCH ×2 (09:55→21:02)
[2017-07-11] MEDS: BRIMONIDINE/TIMOLOL OPH SOLN 5 ML BOTTLE BOTH EYES SCH ×3 (09:55→21:03)
[2017-07-11] MEDS: LISINOPRIL 5 MG TABLET PO SCH (09:55)
[2017-07-11] MEDS: GABAPENTIN 400 MG CAPSULE PO SCH ×2 (09:55→21:02)
[2017-07-11] MEDS: APIXABAN 5 MG TABLET PO SCH ×2 (09:55→21:02)
[2017-07-11] MEDS: DORZOLAMIDE 2% OPH SOLN 10 ML BOTTLE BOTH EYES SCH ×3 (11:10→21:03)
[2017-07-11] MEDS: CYANOCOBALAMIN 1000 MCG/1 ML VIAL IM SCH (16:44)
[2017-07-11] MEDS: LATANOPROST 0.005% OPH SOLN 2.5 ML BOTTLE BOTH EYES SCH (21:03)
[2017-07-12] MEDS: DEXTROSE 5% NACL 0.45% 1,000 ML IV SCH ×4 (01:35→21:30)
[2017-07-12] MEDS: CLINDAMYCIN INJ 600 MG in PREMIX 1 EACH IV SCH ×4 (05:07→23:47)
[2017-07-12 06:22] LABS: Basophils % 0.2 % (0.0-0.8); Eosinophils # 0.1 10*3/uL (0.0-0.87); Eosinophils % 2.4 % (0.00-10.9); Hematocrit 32.3 VOL% (42.0-52.0); Hemoglobin 10.8 GM/DL (14.0-18.0); Immature Granulocytes % 0.7 %; Immature Granulocytes Absolute 0.04 #; Lymphocytes # 1.4 10*3/uL (1.4-4.0); Lymphocytes % 24.1 % (21.2-54.2); Mean Corpuscular HGB Conc 33.4 GM/DL (32-36); Mean Corpuscular Hemoglobin 30 PG (27-34); Mean Platelet Volume 9.9 FL (9.6-12.0); Monocytes # 0.7 10*3/uL (0.11-0.8); Monocytes % 11.7 % (1.7-12.7); Neutrophils # 3.6 10*3/uL (1.4-7.4); Neutrophils % 60.9 % (38.7-73.9); Platelet Count 163 T/CUMM (130-400); Red Blood Count 3.59 MC/CUMM (3.8-5.5); Red Cell Distribution Width 12.8 % (9.3-17.3); White Blood Count 5.9 T/CUMM (4-12)
[2017-07-12 06:50] LABS: Magnesium 1.9 MG/DL (1.8-2.4); Osmolality,Calculated 288.1 MOS/KG (273-304); Potassium 3.8 MMOL/L (3.5-5.1)
[2017-07-12] MEDS: DORZOLAMIDE 2% OPH SOLN 10 ML BOTTLE BOTH EYES SCH ×3 (09:58→21:18)
[2017-07-12] MEDS: BRIMONIDINE/TIMOLOL OPH SOLN 5 ML BOTTLE BOTH EYES SCH ×3 (10:00→21:16)
[2017-07-12] MEDS: POLYETHYLENE GLYCOL POWDER 17 GM PACK PO SCH (10:02)
[2017-07-12] MEDS: LISINOPRIL 5 MG TABLET PO SCH (10:04)
[2017-07-12] MEDS: METOPROLOL TARTRATE 25 MG TABLET PO SCH ×2 (10:04→21:14)
[2017-07-12] MEDS: DOCUSATE SODIUM 100 MG CAPSULE PO SCH ×2 (10:04→21:24)
[2017-07-12] MEDS: ATORVASTATIN 10 MG TABLET PO SCH (10:04)
[2017-07-12] MEDS: GABAPENTIN 400 MG CAPSULE PO SCH ×2 (10:06→21:24)
[2017-07-12] MEDS: APIXABAN 5 MG TABLET PO SCH ×2 (10:06→21:25)
[2017-07-12] MEDS: PANTOPRAZOLE 40 MG TABLET PO SCH (10:07)
[2017-07-12] MEDS: CYANOCOBALAMIN 1000 MCG/1 ML VIAL IM SCH (10:17)
[2017-07-12] MEDS: LATANOPROST 0.005% OPH SOLN 2.5 ML BOTTLE BOTH EYES SCH (21:22)
[2017-07-13] MEDS: DEXTROSE 5% NACL 0.45% 1,000 ML IV SCH ×3 (04:50→21:37)
[2017-07-13] MEDS: CLINDAMYCIN INJ 600 MG in PREMIX 1 EACH IV SCH ×3 (05:25→18:16)
[2017-07-13] MEDS: ATORVASTATIN 10 MG TABLET PO SCH (08:45)
[2017-07-13] MEDS: APIXABAN 5 MG TABLET PO SCH ×2 (08:45→21:31)
[2017-07-13] MEDS: PANTOPRAZOLE 40 MG TABLET PO SCH (08:45)
[2017-07-13] MEDS: LISINOPRIL 5 MG TABLET PO SCH (08:45)
[2017-07-13] MEDS: BRIMONIDINE/TIMOLOL OPH SOLN 5 ML BOTTLE BOTH EYES SCH ×3 (08:46→21:34)
[2017-07-13] MEDS: METOPROLOL TARTRATE 25 MG TABLET PO SCH ×2 (08:46→21:31)
[2017-07-13] MEDS: GABAPENTIN 400 MG CAPSULE PO SCH ×2 (08:46→21:31)
[2017-07-13] MEDS: DOCUSATE SODIUM 100 MG CAPSULE PO SCH ×2 (08:46→21:31)
[2017-07-13] MEDS: DORZOLAMIDE 2% OPH SOLN 10 ML BOTTLE BOTH EYES SCH ×3 (08:46→21:34)
[2017-07-13] MEDS: POLYETHYLENE GLYCOL POWDER 17 GM PACK PO SCH (08:50)
[2017-07-13] MEDS: CYANOCOBALAMIN 1000 MCG/1 ML VIAL IM SCH (08:51)
[2017-07-13] MEDS: IMMUNE GLOBULIN 10% 20 GM, IMMUNE GLOBULIN 10% 10 GM in PREMIX 1 EACH IV SCH (18:20)
[2017-07-13] MEDS: LATANOPROST 0.005% OPH SOLN 2.5 ML BOTTLE BOTH EYES SCH (21:35)
[2017-07-14] MEDS: CLINDAMYCIN INJ 600 MG in PREMIX 1 EACH IV SCH ×5 (00:41→23:22)
[2017-07-14] MEDS: DEXTROSE 5% NACL 0.45% 1,000 ML IV SCH ×3 (04:18→21:28)
[2017-07-14] MEDS: GABAPENTIN 400 MG CAPSULE PO SCH ×2 (09:58→21:28)
[2017-07-14] MEDS: POLYETHYLENE GLYCOL POWDER 17 GM PACK PO SCH (09:58)
[2017-07-14] MEDS: METOPROLOL TARTRATE 25 MG TABLET PO SCH ×2 (09:58→21:28)
[2017-07-14] MEDS: ATORVASTATIN 10 MG TABLET PO SCH (09:58)
[2017-07-14] MEDS: DOCUSATE SODIUM 100 MG CAPSULE PO SCH ×2 (09:58→21:28)
[2017-07-14] MEDS: BRIMONIDINE/TIMOLOL OPH SOLN 5 ML BOTTLE BOTH EYES SCH ×3 (09:59→21:30)
[2017-07-14] MEDS: DORZOLAMIDE 2% OPH SOLN 10 ML BOTTLE BOTH EYES SCH ×3 (09:59→21:30)
[2017-07-14] MEDS: PANTOPRAZOLE 40 MG TABLET PO SCH (09:59)
[2017-07-14] MEDS: LISINOPRIL 5 MG TABLET PO SCH (09:59)
[2017-07-14] MEDS: APIXABAN 5 MG TABLET PO SCH ×2 (09:59→21:28)
[2017-07-14] MEDS: CYANOCOBALAMIN 1000 MCG/1 ML VIAL IM SCH (09:59)
[2017-07-14] MEDS: IMMUNE GLOBULIN 10% 20 GM, IMMUNE GLOBULIN 10% 10 GM in PREMIX 1 EACH IV SCH (16:59)
[2017-07-14] MEDS: LATANOPROST 0.005% OPH SOLN 2.5 ML BOTTLE BOTH EYES SCH (21:31)
[2017-07-15 03:35] LABS: Basophils % 0.3 % (0.0-0.8); Eosinophils # 0.2 10*3/uL (0.0-0.87); Eosinophils % 3.8 % (0.00-10.9); Hemoglobin 11.8 GM/DL (14.0-18.0); Immature Granulocytes % 0.6 %; Immature Granulocytes Absolute 0.04 #; Lymphocytes # 1.2 10*3/uL (1.4-4.0); Mean Corpuscular HGB Conc 32.8 GM/DL (32-36); Mean Corpuscular Hemoglobin 30 PG (27-34); Mean Corpuscular Volume 91.4 FL (87-102); Mean Platelet Volume 10.2 FL (9.6-12.0); Monocytes % 16.3 % (1.7-12.7); Neutrophils # 3.9 10*3/uL (1.4-7.4); Platelet Count 200 T/CUMM (130-400); Red Blood Count 3.94 MC/CUMM (3.8-5.5); Red Cell Distribution Width 12.9 % (9.3-17.3); White Blood Count 6.4 T/CUMM (4-12)
[2017-07-15 03:59] LABS: Calcium 7.8 MG/DL (8.5-10.1); Osmolality,Calculated 278.7 MOS/KG (273-304); Potassium 4.4 MMOL/L (3.5-5.1)
[2017-07-15 04:02] LABS: Eosinophils 1 % (0-10); Lymphocytes 11 % (20-55); Segmented Neutrophils 74 % (50-85); Total Cells Counted 100
[2017-07-15 04:03] LABS: Platelet Estimate Normal
[2017-07-15] MEDS: CLINDAMYCIN INJ 600 MG in PREMIX 1 EACH IV SCH ×3 (05:19→21:41)
[2017-07-15] MEDS: DORZOLAMIDE 2% OPH SOLN 10 ML BOTTLE BOTH EYES SCH ×3 (10:45→21:39)
[2017-07-15] MEDS: BRIMONIDINE/TIMOLOL OPH SOLN 5 ML BOTTLE BOTH EYES SCH ×3 (10:45→21:39)
[2017-07-15] MEDS: GABAPENTIN 400 MG CAPSULE PO SCH ×2 (10:46→21:40)
[2017-07-15] MEDS: METOPROLOL TARTRATE 25 MG TABLET PO SCH ×2 (10:46→21:40)
[2017-07-15] MEDS: PANTOPRAZOLE 40 MG TABLET PO SCH (10:47)
[2017-07-15] MEDS: APIXABAN 5 MG TABLET PO SCH ×2 (10:47→21:40)
[2017-07-15] MEDS: LISINOPRIL 5 MG TABLET PO SCH (10:47)
[2017-07-15] MEDS: DOCUSATE SODIUM 100 MG CAPSULE PO SCH ×2 (10:47→21:40)
[2017-07-15] MEDS: ATORVASTATIN 10 MG TABLET PO SCH (10:47)
[2017-07-15] MEDS: POLYETHYLENE GLYCOL POWDER 17 GM PACK PO SCH (10:50)
[2017-07-15] MEDS: DEXTROSE 5% NACL 0.45% 1,000 ML IV SCH ×2 (10:51→19:50)
[2017-07-15] MEDS: IMMUNE GLOBULIN 10% 20 GM, IMMUNE GLOBULIN 10% 10 GM in PREMIX 1 EACH IV SCH (17:25)
[2017-07-15] MEDS: LATANOPROST 0.005% OPH SOLN 2.5 ML BOTTLE BOTH EYES SCH (21:40)
[2017-07-16] MEDS: CLINDAMYCIN INJ 600 MG in PREMIX 1 EACH IV SCH ×4 (02:10→20:04)
[2017-07-16] MEDS: POLYETHYLENE GLYCOL POWDER 17 GM PACK PO SCH (09:12)
[2017-07-16] MEDS: METOPROLOL TARTRATE 25 MG TABLET PO SCH ×2 (09:12→20:07)
[2017-07-16] MEDS: PANTOPRAZOLE 40 MG TABLET PO SCH (09:12)
[2017-07-16] MEDS: LISINOPRIL 5 MG TABLET PO SCH (09:13)
[2017-07-16] MEDS: GABAPENTIN 400 MG CAPSULE PO SCH ×2 (09:13→20:06)
[2017-07-16] MEDS: DORZOLAMIDE 2% OPH SOLN 10 ML BOTTLE BOTH EYES SCH ×3 (09:13→20:09)
[2017-07-16] MEDS: APIXABAN 5 MG TABLET PO SCH ×2 (09:13→20:06)
[2017-07-16] MEDS: BRIMONIDINE/TIMOLOL OPH SOLN 5 ML BOTTLE BOTH EYES SCH ×3 (09:13→20:08)
[2017-07-16] MEDS: DOCUSATE SODIUM 100 MG CAPSULE PO SCH ×2 (09:13→20:07)
[2017-07-16] MEDS: ATORVASTATIN 10 MG TABLET PO SCH (09:13)
[2017-07-16] MEDS: DEXTROSE 5% NACL 0.45% 1,000 ML IV SCH (13:43)
[2017-07-16] MEDS: LATANOPROST 0.005% OPH SOLN 2.5 ML BOTTLE BOTH EYES SCH ×2 (20:09→23:32)
[2017-07-17] MEDS: CLINDAMYCIN INJ 600 MG in PREMIX 1 EACH IV SCH ×4 (01:39→21:23)
[2017-07-17] MEDS: POLYETHYLENE GLYCOL POWDER 17 GM PACK PO SCH (11:18)
[2017-07-17] MEDS: BRIMONIDINE/TIMOLOL OPH SOLN 5 ML BOTTLE BOTH EYES SCH ×3 (11:24→21:25)
[2017-07-17] MEDS: DORZOLAMIDE 2% OPH SOLN 10 ML BOTTLE BOTH EYES SCH ×3 (11:26→21:25)
[2017-07-17] MEDS: ATORVASTATIN 10 MG TABLET PO SCH (11:27)
[2017-07-17] MEDS: DOCUSATE SODIUM 100 MG CAPSULE PO SCH ×2 (11:27→21:24)
[2017-07-17] MEDS: PANTOPRAZOLE 40 MG TABLET PO SCH (11:28)
[2017-07-17] MEDS: APIXABAN 5 MG TABLET PO SCH ×2 (11:28→21:24)
[2017-07-17] MEDS: LISINOPRIL 5 MG TABLET PO SCH (11:29)
[2017-07-17] MEDS: METOPROLOL TARTRATE 25 MG TABLET PO SCH ×2 (11:29→21:24)
[2017-07-17] MEDS: GABAPENTIN 400 MG CAPSULE PO SCH ×2 (11:31→21:24)
[2017-07-17] MEDS: DEXTROSE 5% NACL 0.45% 1,000 ML IV SCH (14:50)
[2017-07-17] MEDS: LATANOPROST 0.005% OPH SOLN 2.5 ML BOTTLE BOTH EYES SCH (21:24)
[2017-07-18] MEDS: CLINDAMYCIN INJ 600 MG in PREMIX 1 EACH IV SCH ×2 (02:20→08:40)
[2017-07-18 06:47] LABS: Basophils % 0.5 % (0.0-0.8); Eosinophils # 0.3 10*3/uL (0.0-0.87); Eosinophils % 4.1 % (0.00-10.9); Hematocrit 35.9 VOL% (42.0-52.0); Hemoglobin 12.3 GM/DL (14.0-18.0); Immature Granulocytes % 0.8 %; Immature Granulocytes Absolute 0.05 #; Lymphocytes # 1.4 10*3/uL (1.4-4.0); Lymphocytes % 22.3 % (21.2-54.2); Mean Corpuscular HGB Conc 34.3 GM/DL (32-36); Mean Corpuscular Hemoglobin 30 PG (27-34); Mean Platelet Volume 9.6 FL (9.6-12.0); Monocytes # 0.9 10*3/uL (0.11-0.8); Monocytes % 14.3 % (1.7-12.7); Neutrophils # 3.7 10*3/uL (1.4-7.4); Platelet Count 247 T/CUMM (130-400); Red Blood Count 4.08 MC/CUMM (3.8-5.5); White Blood Count 6.3 T/CUMM (4-12)
[2017-07-18 07:19] LABS: Calcium 8.1 MG/DL (8.5-10.1); Magnesium 1.9 MG/DL (1.8-2.4); Osmolality,Calculated 279.7 MOS/KG (273-304); Potassium 4.1 MMOL/L (3.5-5.1)
[2017-07-18] MEDS: APIXABAN 5 MG TABLET PO SCH (08:42)
[2017-07-18] MEDS: DOCUSATE SODIUM 100 MG CAPSULE PO SCH (08:42)
[2017-07-18] MEDS: METOPROLOL TARTRATE 25 MG TABLET PO SCH (08:42)
[2017-07-18] MEDS: ATORVASTATIN 10 MG TABLET PO SCH (08:42)
[2017-07-18] MEDS: POLYETHYLENE GLYCOL POWDER 17 GM PACK PO SCH (08:43)
[2017-07-18] MEDS: LISINOPRIL 5 MG TABLET PO SCH (08:43)
[2017-07-18] MEDS: GABAPENTIN 400 MG CAPSULE PO SCH (08:43)
[2017-07-18] MEDS: PANTOPRAZOLE 40 MG TABLET PO SCH (08:43)
[2017-07-18] MEDS: BRIMONIDINE/TIMOLOL OPH SOLN 5 ML BOTTLE BOTH EYES SCH (08:47)
[2017-07-18] MEDS: DORZOLAMIDE 2% OPH SOLN 10 ML BOTTLE BOTH EYES SCH (08:48)
[2017-07-18 11:11] VITALS: BP 95/47
== END 2017-07-18 13:32 | DRG 603 ==
LOC: EDBD → EDUNIT# → N.ED 10:20 → N.EDINP 13:42 → SUPCPDRO 13:42 → N.3E 15:31
PROVIDERS: ADMIT Internal Medicine; ATTEND Internal Medicine